=== PATIENT | female | born 1995 | race Caucasian/White ===

== ENCOUNTER 2019-05-04 18:06 | Emergency (ER) | payer OTHER ==
[2019-05-04] MEDS ORDERED: HYDROcod/ACETAM 5/325 MG TABLET PO STA (18:21)
--- NOTE | 2019-05-04 18:23 | ED Physician Documentation ---
PD HPI BACK PAIN - Stated complaint Stated Complaint: BACK/LT SHOULDER PX - Chief complaint Chief Complaint: Back Pain - History obtained from History obtained from: Patient (She works in an assisted living facility, she is a caregiver. The patient kind of slumped down on her shoulders and then she hit her back. She complains of left shoulder pain and back pain. This happened today this afternoon.) Review of Systems Constitutional: reports: Reviewed and negative Nose: reports: Reviewed and negative Throat: reports: Reviewed and negative PD PAST MEDICAL HISTORY - Present Medications Home Medications: Ambulatory Orders Medication Instructions Recorded Confirmed Cyclobenzaprine [Flexeril] 10 mg PO TID PRN #10 tablet 05/04/19 Meloxicam [Mobic] 7.5 mg PO BID PRN #20 tablet 05/04/19 - Allergies Allergies/Adverse Reactions: Allergies Allergy/AdvReac Type Severity Reaction Status Date / Time clarithromycin [From Biaxin] Allergy Anaphylaxis Verified 05/04/19 18:14 PD ED PE NORMAL - Vitals Vital signs reviewed: Yes - General General: Alert and oriented X 3, No acute distress - HEENT HEENT: PERRL, EOMI - Neck Neck: Supple, no meningeal sign, No bony TTP - Back Back: Other (Left shoulder is nontender with full range of motion, mild tenderness of the thoracic and lumbar spines.) - Extremities Extremities: Other (The patient has equal and normal Achilles and patellar reflexes bilaterally. Normal sensation in all areas of the legs. Patient denies saddle anesthesia. Normal strength in flexion-extension at the ankles, knees, and flexion of the hips.) - Neuro Neuro: Alert and oriented X 3, Normal speech Results - Vitals Vitals: Vital Signs - 24 hr 05/04/19 05/04/19 18:10 19:35 Temperature 36.2 C L Heart Rate 90 85 Respiratory 16 16 Rate Blood Pressure 117/80 109/79 O2 Saturation 99 97 Oxygen O2 Source Room air - Rads (name of study) TL spine XR Radiology: EMP read contemporaneously (neg) PD MEDICAL DECISION MAKING - ED course ED course: 24-year-old woman with a work-related injury, shoulder contusion, full range of motion and nontender so doubt bony injury. Also some tenderness of the mid thoracic spine pretty mild, neurovascularly normal and x-rays negative. Departure - Departure Disposition: 01 Home, Self Care Clinical Impression: Back contusion Qualifiers: Encounter type: initial encounter Laterality: unspecified laterality Qualified Code(s): S20.229A - Contusion of unspecified back wall of thorax, initial encounter Shoulder contusion Qualifiers: Encounter type: initial encounter Laterality: left Qualified Code(s): S40.012A - Contusion of left shoulder, initial encounter Condition: Good Record reviewed to determine appropriate education?: Yes Instructions: ED Low Back Pain Injury Prescriptions: Cyclobenzaprine [Flexeril] 10 mg PO TID PRN #10 tablet PRN Reason: Spasms Meloxicam [Mobic] 7.5 mg PO BID PRN #20 tablet PRN Reason: Pain Comments: Call your doctor to arrange a follow-up appointment, make the next available appointment. In the interim, return anytime if worse or if new symptoms develop. Discharge Date/Time: 05/04/19 19:36
--- NOTE | 2019-05-04 19:18 | XRAY Report ---
Reason: back injury Procedure Date: 05/04/2019 Accession Number: [id number] / [id number] Procedure: XR - ThoracoLumbar 2 View CPT Code: 73681 Final Report FULL RESULT: EXAM: LUMBOSACRAL SPINE RADIOGRAPHY EXAM DATE: 05/04/2019 06:48 PM. CLINICAL HISTORY: Back injury. COMPARISONS: None. TECHNIQUE: 2 views. FINDINGS: Alignment: Slight S-shaped curvature. Bones: Five [id number] lumbar vertebral bodies are present. No fractures or bone lesions. Disks: Normal. Disk heights are maintained. Soft Tissues: Normal. The visualized bowel gas pattern is normal. IMPRESSION: 1. Slight S-shaped curvature. 2. No compression deformities or spondylolisthesis RADIA
[2019-05-04 19:36] VITALS: BP 109/79
== END 2019-05-04 19:36 | disposition home or self-care (01) ==
LOC: ED 18:06
DX: S20.229A Contusion of unspecified back wall of thorax, initial encounter (principal); S40.012A Contusion of left shoulder, initial encounter; W50.0XXA Accidental hit or strike by another person, initial encounter; Y93.F9 Activity, other caregiving; Y92.091 Bathroom in other non-institutional residence as the place of occurrence of the external cause; Y99.0 Civilian activity done for income or pay
CPT/HCPCS: 72080; 99283; 99284; A9270

== ENCOUNTER 2019-09-25 14:52 | Outpatient (CLI) | payer BC ==
[2019-09-25 21:52] LABS: TRICHOMONAS VAGINALIS DNA NEGATIVE (NEGATIVE)
== END 2019-09-25 14:53 | disposition home or self-care (01) ==
LOC: LAB.WCP 14:52
PROVIDERS: ATTEND Nurse Practitioner
DX: Z11.3 Encounter for screening for infections with a predominantly sexual mode of transmission (principal)
CPT/HCPCS: 87491; 87591; 87661

== ENCOUNTER 2019-10-01 22:54 | Outpatient (CLI) | payer BC ==
[2019-10-01 23:30] LABS: THYROID STIMULATING HORMONE 5.54 uIU/mL (0.34-5.60)
[2019-10-01 23:31] LABS: FREE T3 3.47 pg/mL (2.5-3.9)
[2019-10-01 23:32] LABS: FREE T4 (FREE THYROXINE) 1.03 ng/dL (0.58-1.64)
== END 2019-10-01 22:55 | disposition home or self-care (01) ==
LOC: LAB 22:54
PROVIDERS: ATTEND Nurse Practitioner
DX: E03.9 Hypothyroidism, unspecified (principal); Z11.3 Encounter for screening for infections with a predominantly sexual mode of transmission
CPT/HCPCS: 36415; 84439; 84443; 84481

== ENCOUNTER 2020-05-31 22:36 | Emergency (ER) | payer OTHER, BC ==
--- NOTE | 2020-05-31 23:23 | ED Physician Documentation ---
PD HPI BACK PAIN - Stated complaint Stated Complaint: RT SIDE & BACK/KNEE PX - Chief complaint Chief Complaint: Trauma Ch/Bk - History obtained from History obtained from: Patient - History of Present Illness Timing - onset: Enter time (22:30), Today Timing - details: Abrupt onset Pain level now: 7 Location: Lower, Right Quality: Pain, Spasm Associated symptoms: No: Fever, Weakness, Numbness, Incontinent of urine, Unable to urinate, Incontinent of stool Improves with: Rest Worsened by: Movement Similar symptoms before: Has not had sx before Recently seen: Not recently seen - Additional information Additional information: patient is a [employer] and 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 This pain has steadily worsened since onset. She has h/o left back injury last year but the location and quality of tonight's pain is different. She denies h/o symptoms similar to tonight's symptoms. Review of Systems : denies: Incontinent, Now EGA Musculoskeletal: reports: Back pain. denies: Neck pain Neurologic: denies: Focal weakness, Numbness PD PAST MEDICAL HISTORY - Past Medical History Past Medical History: Yes Endocrine/Autoimmune: HyPOthyroidism - Past Surgical History Past Surgical History: Yes Ortho: Other - Present Medications Home Medications: Ambulatory Orders Medication Instructions Recorded Confirmed Bcp 05/31/20 Levothyroxine Sodium [Euthyrox] 125 mcg PO DAILY 05/31/20 05/31/20 Cyclobenzaprine [Flexeril] 10 mg PO TID PRN #20 tab 06/01/20 HYDROcod/ACETAM 5/325 [[place] 5/325] 1 - 2 ea PO Q6H PRN #15 06/01/20 Meloxicam [Mobic] 7.5 mg PO BID PRN #20 tab 06/01/20 - Allergies Allergies/Adverse Reactions: Allergies Allergy/AdvReac Type Severity Reaction Status Date / Time clarithromycin [From Biaxin] Allergy Anaphylaxis Verified 05/31/20 22:51 - Social History Does the pt smoke?: Yes Smoking Status: Current every day smoker Does the pt drink ETOH?: Yes Does the pt have substance abuse?: No - Immunizations Immunizations are current?: Yes - POLST Patient has POLST: No PD ED PE NORMAL - Vitals Vital signs reviewed: Yes - General General: Alert and oriented X 3, No acute distress (NAD at rest, appears to be uncomfortable with movement involving lower back), Well developed/nourished - Back Back: No CVA TTP, Other (TTP bilateral paralumbar) - Derm Derm: Normal color, Warm and dry - Neuro Neuro: No motor deficit (5/5 bilateral dorsi/plantarflexion), Other (2+/4 bilateral patellar DTR) Results - Vitals Vitals: Vital Signs - 24 hr 05/31/20 06/01/20 22:40 00:55 Temperature 36.5 C 36.3 C L Heart Rate 86 69 Respiratory 16 16 Rate Blood Pressure 138/84 H 127/77 O2 Saturation 100 100 Oxygen O2 Source Room air PD MEDICAL DECISION MAKING - ED course Complexity details: reviewed old records, reviewed results, re-evaluated patient, considered differential, d/w patient ED course: Right LBP with radiation down back of right leg to knee, sudden onset when heavy lifting (see HPI). Pain is worse with movement. No "red flags" ( no fever, numbness, weakness, bowel/bladder continence issues); no emergent testing indicated at this time. She will need time off from work and appropriate analgesia. She is given mobic in ED with prescriptions for mobic, flexeril, and vicodin. Departure - Departure Disposition: 01 Home, Self Care Clinical Impression: Lumbar sprain Qualifiers: Encounter type: initial encounter Qualified Code(s): S33.5XXA - Sprain of ligaments of lumbar spine, initial encounter Condition: Good Instructions: ED Sprain Strain Lumbar Follow-Up: [facility] [Provider Group] [facility] [Provider Group] Prescriptions: Cyclobenzaprine [Flexeril] 10 mg PO TID PRN #20 tab PRN Reason: Spasms Meloxicam [Mobic] 7.5 mg PO BID PRN #20 tab PRN Reason: Pain HYDROcod/ACETAM 5/325 [[place] 5/325] 1 - 2 ea PO Q6H PRN #15 PRN Reason: Pain Forms: Activity restrictions Discharge Date/Time: 06/01/20 00:58
[2020-06-01] MEDS ORDERED: CYCLOBENZAPRINE 10 MG Prepack 2 PO PRN (00:33)
[2020-06-01] MEDS ORDERED: HYDROcod/ACET 5/325 Prepack 4 PO STA (00:33)
[2020-06-01] MEDS ORDERED: MELOXICAM 7.5 MG TABLET PO STA (00:33)
[2020-06-01 01:02] VITALS: BP 127/77
== END 2020-06-01 00:58 | disposition home or self-care (01) ==
LOC: ED 22:36
DX: S33.5XXA Sprain of ligaments of lumbar spine, initial encounter (principal); X50.0XXA Overexertion from strenuous movement or load, initial encounter; Y93.F2 Activity, caregiving, lifting; Y92.239 Unspecified place in hospital as the place of occurrence of the external cause; Y99.0 Civilian activity done for income or pay; F17.200 Nicotine dependence, unspecified, uncomplicated
CPT/HCPCS: 99283; A9270

== ENCOUNTER 2020-06-05 17:13 | Outpatient (CLI) | payer BC ==
--- NOTE | 2020-06-05 17:52 | XRAY Report ---
PROCEDURE: Lumbar Spine 2 View INDICATIONS: STRAIN OF BACK MUSCLE TECHNIQUE: 3 views of the lumbar spine were acquired. COMPARISON: None. FINDINGS: Bones: 5 [id number] vertebrae are present. There is normal bony alignment. No vertebral body compression fractures. No suspicious bony lesions. Soft tissues: Overlying bowel gas pattern is normal. No suspicious soft tissue calcifications. IMPRESSION: Unremarkable radiographic examination of lumbar spine. Reviewed by: Osbaldo Pimentel MD on 06/05/2020 5:50 PM PST Approved by: Osbaldo Pimentel MD on 06/05/2020 5:50 PM PST Station ID: [id number]
== END 2020-06-05 17:14 | disposition home or self-care (01) ==
LOC: DI.N 17:13
PROVIDERS: ATTEND Nurse Practitioner
DX: S39.012A Strain of muscle, fascia and tendon of lower back, initial encounter (principal)

== ENCOUNTER 2022-05-06 15:46 | Outpatient (CLI) | payer BC ==
[2022-05-06 19:04] LABS: BASOPHILS % (AUTO) 1.2 %; EOSINOPHILS % (AUTO) 0.3 %; HCT - HEMATOCRIT 34.7 % (37.0-47.0); HGB - HEMOGLOBIN 11.2 g/dL (12.0-16.0); LYMPHOCYTES # (AUTO) 1.3 10^3/uL (1.5-3.5); LYMPHOCYTES % (AUTO) 39.4 %; MEAN CORPUSCULAR HEMOGLOBIN 30.2 pg (27.0-31.0); MEAN CORPUSCULAR HGB CONC 32.3 g/dL (32.0-36.0); MEAN CORPUSCULAR VOLUME 93.5 fL (81.0-99.0); MEAN PLATELET VOLUME 10.5 fL (7.9-10.8); MONOCYTES # (AUTO) 0.5 10^3/uL (0.0-1.0); MONOCYTES % (AUTO) 15.3 %; NEUTROPHILS # (AUTO) 1.5 10^3/uL (1.5-6.6); NEUTROPHILS % (AUTO) 43.5 %; PLT - PLATELET COUNT 230 10^3/uL (130-450); RED BLOOD COUNT 3.71 10^6/uL (4.20-5.40); RED CELL DISTRIBUTION WIDTH 13.7 % (12.0-15.0); WHITE BLOOD COUNT 3.4 x10^3/uL (4.8-10.8)
[2022-05-06 19:14] LABS: ALBUMIN 4.1 g/dL (3.2-5.5); ALBUMIN/GLOBULIN RATIO 0.6 (1.0-2.2); ALKALINE PHOSPHATASE 71 IU/L (42-121); ALT ALANINE AMINOTRANSFERASE 133 IU/L (10-60); AST ASPARTATE AMINOTRANSFERASE 86 IU/L (10-42); BILIRUBIN,TOTAL 0.7 mg/dL (0.2-1.0); BUN - BLOOD UREA NITROGEN 12 mg/dL (6-20); CALCIUM 8.8 mg/dL (8.5-10.3); CARBON DIOXIDE - CO2 23 mmol/L (21-32); CHLORIDE 103 mmol/L (101-111); CHOL/HDL RATIO 2.4 (<4.4); CHOLESTEROL 113 mg/dL; CREATININE 0.8 mg/dL (0.4-1.0); GFR - MDRD 87 (>89); GLUCOSE 86 mg/dL (70-100); HDL CHOLESTEROL 48 mg/dL; LDL CHOLESTEROL,CALCULATED 54 mg/dL; LDL/HDL RATIO 1.1 (<4.4); POTASSIUM 3.7 mmol/L (3.5-5.0); SODIUM 135 mmol/L (135-145); TOTAL PROTEIN 10.9 g/dL (6.7-8.2); TRIGLYCERIDES 55 mg/dL; VLDL CHOLESTEROL 11 mg/dL
[2022-05-06 19:31] LABS: FREE T3 2.27 pg/mL (2.5-3.9)
[2022-05-06 19:32] LABS: FREE T4 (FREE THYROXINE) 0.54 ng/dL (0.58-1.64)
[2022-05-06 21:52] LABS: THYROID STIMULATING HORMONE 146.9 uIU/mL (0.34-5.60)
[2022-05-06 23:56] LABS: CHLAMYDIA TRACHOMATIS DNA NEGATIVE (NEGATIVE); NEISSERIA GONORRHOEAE DNA NEGATIVE (NEGATIVE); TRICHOMONAS VAGINALIS DNA NEGATIVE (NEGATIVE)
[2022-05-08 05:10] LABS: HIV SCREEN 4TH GENERATION Non Reactive (Non Reactive)
[2022-05-11 04:09] LABS: RPR Non Reactive (Non Reactive)
== END 2022-05-06 15:47 | disposition home or self-care (01) ==
LOC: LAB.N 15:46
PROVIDERS: ATTEND Family Medicine
DX: E03.9 Hypothyroidism, unspecified (principal); Z11.3 Encounter for screening for infections with a predominantly sexual mode of transmission; J45.909 Unspecified asthma, uncomplicated
CPT/HCPCS: 36415; 80053; 80061; 83721; 84439; 84443; 84481; 85025; 86592; 87389; 87491; 87591; 87661

== ENCOUNTER 2022-05-12 20:33 | Outpatient (CLI) | payer BC ==
[2022-05-12 21:35] LABS: ALBUMIN 3.9 g/dL (3.2-5.5); ALBUMIN/GLOBULIN RATIO 0.6 (1.0-2.2); BILIRUBIN,TOTAL 0.6 mg/dL (0.2-1.0); CREATININE 0.7 mg/dL (0.4-1.0); POTASSIUM 3.6 mmol/L (3.5-5.0); TOTAL PROTEIN 10.5 g/dL (6.7-8.2)
[2022-05-14 05:11] LABS: HBsAG SCREEN Negative (Negative)
== END 2022-05-12 20:34 | disposition home or self-care (01) ==
LOC: LAB 20:33
PROVIDERS: ATTEND Family Medicine
DX: R94.5 Abnormal results of liver function studies (principal)
CPT/HCPCS: 36415; 80053; 82977; 86704; 86709; 87340

== ENCOUNTER 2022-05-31 06:46 | Outpatient (CLI) | payer BC ==
--- NOTE | 2022-05-31 08:29 | Ultrasound Report ---
PROCEDURE: Abdomen Complete INDICATIONS: ABN LIVER FUNCTION TESTS TECHNIQUE: Real-time scanning was performed of the abdominal and retroperitoneal organs, with image documentatio n. COMPARISON: None. FINDINGS: Liver: Increased liver echogenicity with focal region of fat stranding in the right hepatic lobe fauzia uring 2.1 cm. No solid mass identified. Gallbladder: Cholelithiasis without evidence of acute cholecystitis. Biliary ducts: Intrahepatic bile ducts are non-dilated. Extrahepatic bile duct caliber measures 4 m m. Normal is 6-7 mm or less in diameter, or 10 mm or less post-cholecystectomy. Pancreas: Visualized portions of the pancreas are sonographically normal. Spleen: Spleen is normal in size and homogeneous in echotexture. Kidneys: Kidneys are normal in size and echotexture. Right kidney measures 11.2 cm long; left kidne y measures 11.8 cm long. No hydronephrosis or nephrolithiasis. No solid masses. Aorta: Visualized aorta is normal in caliber at less than 3 cm. Iliacs: Proximal common iliac arteries are normal in caliber at less than 2.5 cm. IVC: Intrahepatic inferior vena cava is patent. Miscellaneous: No free abdominal fluid. IMPRESSION: 1. Increased liver echogenicity, likely hepatic steatosis. In the setting of elevated liver enzymes, NAFLD is a consideration. 2. Cholelithiasis without evidence of acute cholecystitis. Reviewed by: Obed Mcdaniel on 05/31/2022 8:28 AM [facility] Approved by: Obed Mcdaniel on 05/31/2022 8:28 AM PST Station ID: [id number]
== END 2022-05-31 06:47 | disposition home or self-care (01) ==
LOC: DI 06:46
PROVIDERS: ATTEND Family Medicine
DX: K80.20 Calculus of gallbladder without cholecystitis without obstruction (principal)

== ENCOUNTER 2022-07-19 19:01 | Outpatient (CLI) | payer BC | END 2022-07-19 19:02 | disposition left against medical advice (07) | LOC: EMS 19:01 | DX: R55 Syncope and collapse (principal) ==

== ENCOUNTER 2022-07-19 20:44 | Emergency (ER) | payer BC ==
--- NOTE | 2022-07-19 21:05 | ED Physician Documentation ---
History of Present Illness - Stated complaint Stated Complaint: IRREGULAR HR - Chief complaint Chief Complaint: Cardiac - History obtained from History obtained from: Patient - Additonal information Additional information: Previously healthy 27-year-old was in her usual state of health today making dinner. She started feel lightheaded and after a few minutes was sitting down and decided to go lay down. She stood up to go lay down and then collapsed with syncope. No seizure activity. She was out for about 60 seconds and now feels back to normal. EMS was summoned and noted her to have extrasystoles and she presents for evaluation. She denies pedal edema or calf pain. No history of extrasystoles but she does not know if she is ever even had an EKG before. She is on control and Synthroid. PD PAST MEDICAL HISTORY - Past Medical History Endocrine/Autoimmune: HyPOthyroidism - Past Surgical History Past Surgical History: Yes Ortho: Other - Present Medications Home Medications: Ambulatory Orders Medication Instructions Recorded Confirmed Bcp 05/31/20 Levothyroxine Sodium [Euthyrox] 125 mcg PO DAILY 05/31/20 05/31/20 Cyclobenzaprine [Flexeril] 10 mg PO TID PRN #20 tab 06/01/20 HYDROcod/ACETAM 5/325 [[place] 5/325] 1 - 2 ea PO Q6H PRN #15 06/01/20 Meloxicam [Mobic] 7.5 mg PO BID PRN #20 tab 06/01/20 - Allergies Allergies/Adverse Reactions: Allergies Allergy/AdvReac Type Severity Reaction Status Date / Time clarithromycin [From Biaxin] Allergy Anaphylaxis Verified 07/19/22 20:54 - Social History Does the pt smoke?: Yes Smoking Status: Current every day smoker Does the pt drink ETOH?: Yes Does the pt have substance abuse?: No - Immunizations Immunizations are current?: Yes - POLST Patient has POLST: No PD ED PE NORMAL - Vitals Vital signs reviewed: Yes - General General: Alert and oriented X 3, No acute distress - HEENT HEENT: PERRL, EOMI - Neck Neck: Supple, no meningeal sign, No bony TTP - Cardiac Cardiac: Other (Frequent extrasystoles without murmur) - Respiratory Respiratory: No respiratory distress, Clear bilaterally - Abdomen Abdomen: Non tender - Extremities Extremities: No edema, No calf tenderness / cord, Other (She was complaining of some pain in the left knee after the syncope. There was no tenderness or limited range of motion.) - Neuro Neuro: Alert and oriented X 3, Normal speech Eye Opening: Spontaneous Motor: Obeys Commands Verbal: Oriented GCS Score: 15 - Psych Psych: Normal mood, Normal affect Results - Vitals Vitals: Vital Signs - 24 hr 07/19/22 07/19/22 20:47 23:00 Temperature 36.6 C Heart Rate 95 71 Respiratory 18 20 Rate Blood Pressure 114/63 95/59 L O2 Saturation 100 98 Oxygen O2 Source Room air - EKG (time done) 2110 EKG releavant findings:: EKG personally interpreted by author of this note. Relevant findings are: Rate: Rate (enter#) (83) Rhythm: NSR (With fairly frequent PVCs) [place]: LAD Intervals: Other (Intraventricular conduction delay, QRS diameter 133 ms) QRS: Normal Ischemia: Normal ST segments - Labs Labs: Laboratory Tests 07/19/22 07/19/22 07/19/22 21:20 21:20 21:20 WBC 5.7 RBC 4.15 L Hgb 12.2 Hct 37.5 MCV 90.4 MCH 29.4 MCHC 32.5 RDW 12.4 Plt Count 235 MPV 9.9 Neut # (Auto) 3.5 Lymph # (Auto) 1.4 L [place] # (Auto) 0.7 Eos # (Auto) 0.0 Baso # (Auto) 0.0 Absolute Nucleated RBC 0.00 Nucleated RBC % 0.0 D-Dimer > 1050.0 H Sodium 135 Potassium 3.4 L Chloride 104 Carbon Dioxide 25 Anion Gap 6.0 BUN 14 Creatinine 0.6 Estimated GFR (MDRD) 121 Glucose 113 H Calcium 9.0 Magnesium 1.8 Total Bilirubin 0.3 AST 35 ALT 61 H Alkaline Phosphatase 48 Total Protein 9.3 H Albumin 3.7 Globulin 5.6 H Albumin/Globulin Ratio 0.7 L Urine Color Urine Clarity Urine pH Ur Specific [place] Urine Protein Urine Glucose (UA) Urine Ketones Urine Occult Blood Urine Nitrite Urine Bilirubin Urine Urobilinogen Ur Leukocyte Esterase Urine RBC Urine WBC Urine WBC Clumps Ur Squamous Epith Cells Urine Bacteria Urine Yeast Ur Microscopic Review Urine Culture Comments Urine HCG, Qual 07/19/22 21:55 WBC RBC Hgb Hct MCV MCH MCHC RDW Plt Count MPV Neut # (Auto) Lymph # (Auto) [place] # (Auto) Eos # (Auto) Baso # (Auto) Absolute Nucleated RBC Nucleated RBC % D-Dimer Sodium Potassium Chloride Carbon Dioxide Anion Gap BUN Creatinine Estimated GFR (MDRD) Glucose Calcium Magnesium Total Bilirubin AST ALT Alkaline Phosphatase Total Protein Albumin Globulin Albumin/Globulin Ratio Urine Color YELLOW Urine Clarity HAZY Urine pH 6.5 Ur Specific [place] 1.020 Urine Protein 100 H Urine Glucose (UA) NEGATIVE Urine Ketones NEGATIVE Urine Occult Blood NEGATIVE Urine Nitrite NEGATIVE Urine Bilirubin NEGATIVE Urine Urobilinogen 0.2 (NORMAL) Ur Leukocyte Esterase SMALL H Urine RBC 6-10 H Urine WBC 11-25 H Urine WBC Clumps PRESENT Ur Squamous Epith Cells FEW Squamous Urine Bacteria Few Urine Yeast PRESENT Ur Microscopic Review INDICATED Urine Culture Comments INDICATED Urine HCG, Qual NEGATIVE PD Medical Decision Making - ED course ED course: 27-year-old woman on hormonal control had a syncopal episode tonight, no serious injuries. She has frequent PVCs here, the acuity of this is unclear. There is no associated chest pain. Her work-up initially demonstrates the EKG as above, CBC which was grossly normal. CMP notable for borderline hypokalemia/hypomagnesemia repleted orally, mild elevation in liver enzymes which is chronic. Her D-dimer is quite elevated. Her urinalysis showing small leukocyte esterase and some white cells and yeast but without symptoms of UTI per se. Given the high D-dimer CT angiography of the chest was ordered. Care to overnight emergency physician pending CT read. Departure - Departure Disposition: 01 Home, Self Care Clinical Impression: Syncope, PVCs (premature ventricular contractions) Condition: Good Record reviewed to determine appropriate education?: Yes Instructions: ED Palpitations, ED Fainting Unkn Cause Comments: Follow-up with your primary care physician, consider prolonged cardiac monitoring such as Zio patch or Holter monitor and/or echocardiography and/or cardiology referral. Return for new or worsening symptoms. Forms: Activity restrictions Discharge Date/Time: 07/20/22 00:13
[2022-07-19 21:26] LABS: BASOPHILS % (AUTO) 0.2 %; HCT - HEMATOCRIT 37.5 % (37.0-47.0); HGB - HEMOGLOBIN 12.2 g/dL (12.0-16.0); LYMPHOCYTES # (AUTO) 1.4 10^3/uL (1.5-3.5); LYMPHOCYTES % (AUTO) 25.3 %; MEAN CORPUSCULAR HEMOGLOBIN 29.4 pg (27.0-31.0); MEAN CORPUSCULAR HGB CONC 32.5 g/dL (32.0-36.0); MEAN CORPUSCULAR VOLUME 90.4 fL (81.0-99.0); MEAN PLATELET VOLUME 9.9 fL (7.9-10.8); MONOCYTES # (AUTO) 0.7 10^3/uL (0.0-1.0); NEUTROPHILS # (AUTO) 3.5 10^3/uL (1.5-6.6); NEUTROPHILS % (AUTO) 61.3 %; PLT - PLATELET COUNT 235 10^3/uL (130-450); RED BLOOD COUNT 4.15 10^6/uL (4.20-5.40); RED CELL DISTRIBUTION WIDTH 12.4 % (12.0-15.0); WHITE BLOOD COUNT 5.7 x10^3/uL (4.8-10.8)
[2022-07-19 21:38] LABS: ALBUMIN 3.7 g/dL (3.2-5.5); ALBUMIN/GLOBULIN RATIO 0.7 (1.0-2.2); BILIRUBIN,TOTAL 0.3 mg/dL (0.2-1.0); CREATININE 0.6 mg/dL (0.4-1.0); MAGNESIUM 1.8 mg/dL (1.7-2.8); POTASSIUM 3.4 mmol/L (3.5-5.0); TOTAL PROTEIN 9.3 g/dL (6.7-8.2)
[2022-07-19] MEDS ORDERED: MAGNESIUM OXIDE 400 MG TABLET PO STA (21:39)
[2022-07-19] MEDS ORDERED: POTASSIUM CHLORIDE 20 MEQ TABLET PO STA (21:39)
[2022-07-19] MEDS ORDERED: iohexoL-300 100 ML VIAL ONE (22:01)
[2022-07-19 22:04] LABS: BILIRUBIN,URINE NEGATIVE (NEGATIVE); GLUCOSE, URINE (UA) NEGATIVE (NEGATIVE); KETONES,URINE (UA) NEGATIVE (NEGATIVE); LEUKOCYTE ESTERASE, URINE SMALL (NEGATIVE); NITRITE,URINE NEGATIVE (NEGATIVE); OCCULT BLOOD,URINE NEGATIVE (NEGATIVE); PH,URINE 6.5 PH (5.0-7.5); PROTEIN,URINE 100 mg/dL (NEGATIVE); UROBILINOGEN,URINE 0.2 (NORMAL) E.U./dL (NORMAL)
[2022-07-19 22:06] LABS: CLARITY,URINE HAZY (CLEAR); HCG UR QUAL NEGATIVE
[2022-07-19 22:11] LABS: BACTERIA,URINE Few /HPF (None Seen); SQUAMOUS EPITHELIAL CELL,UR FEW Squamous (<= Few); WBC CLUMPS,URINE PRESENT; YEAST,URINE PRESENT
[2022-07-19 23:10] VITALS: BP 95/59
--- NOTE | 2022-07-19 23:39 | CT Report ---
PROCEDURE: ANGIO CHEST W/WO INDICATIONS: syncope, high dimer CONTRAST: Omni 300 65ml TECHNIQUE: After the administration of intravenous contrast, 2 mm axial images were acquired from the pulmonary apices to the posterior costophrenic angles during the arterial phase. In addition, 1 mm lung kernel and 5 mm soft tissue kernel reconstructions were performed. 3-dimensional coronal oblique maximum int ensity projection (MIP) reformats, 8 mm axial MIP, and 5 mm coronal and sagittal MPR reformats were t hen performed through the thorax. For radiation dose reduction, the following was used: automated exp osure control, adjustment of mA and/or kV according to patient size. COMPARISON: None FINDINGS: Image quality: Good Lungs and pleura:No airspace disease or pleural effusions. Mediastinum, heart, and esophagus: No acute pulmonary embolism identified. Heart size is within [place] l limits. Nonspecific patulous appearance of the esophagus. No pathologic adenopathy by size criteria . Anterior mediastinal soft tissue likely thymic remnant tissue. Chest wall and thyroid: Unremarkable Upper abdomen: No significant abnormality on these limited arterial phase images. Bones: No acute or suspicious osseous finding. IMPRESSION: No acute pulmonary embolism. No dense airspace disease or pleural effusions identified. Reviewed by: Justin Avila MD on 07/19/2022 11:38 PM PDT Approved by: Justin Avila MD on 07/19/2022 11:38 PM PDT Station ID: [id number]
[2022-07-20] MEDS ORDERED: iohexoL-300 100 ML VIAL IVP ONE (00:06)
== END 2022-07-20 00:13 | disposition home or self-care (01) ==
LOC: ED 20:44
DX: R55 Syncope and collapse (principal); I49.3 Ventricular premature depolarization; R79.1 Abnormal coagulation profile; E87.6 Hypokalemia; E83.42 Hypomagnesemia; F17.200 Nicotine dependence, unspecified, uncomplicated
CPT/HCPCS: 36415; 71275; 80053; 81001; 81025; 83735; 85025; 85379; 87086; 93005; 99283; 99284; A9270; Q9967; 81003

== ENCOUNTER 2022-07-29 14:32 | Outpatient (CLI) | payer BC ==
[2022-07-29 14:42] LABS: BASOPHILS % (AUTO) 0.3 %; EOSINOPHILS % (AUTO) 0.9 %; HCT - HEMATOCRIT 38.6 % (37.0-47.0); HGB - HEMOGLOBIN 12.9 g/dL (12.0-16.0); LYMPHOCYTES % (AUTO) 43.8 %; MEAN CORPUSCULAR HEMOGLOBIN 29.4 pg (27.0-31.0); MEAN CORPUSCULAR HGB CONC 33.4 g/dL (32.0-36.0); MEAN CORPUSCULAR VOLUME 87.9 fL (81.0-99.0); MEAN PLATELET VOLUME 10.2 fL (7.9-10.8); MONOCYTES % (AUTO) 16.5 %; NEUTROPHILS % (AUTO) 38.2 %; PLT - PLATELET COUNT 236 10^3/uL (130-450); RED BLOOD COUNT 4.39 10^6/uL (4.20-5.40); RED CELL DISTRIBUTION WIDTH 12.3 % (12.0-15.0); WHITE BLOOD COUNT 3.5 x10^3/uL (4.8-10.8)
[2022-07-29 14:46] LABS: SLIDE REVIEW? Indicated
[2022-07-29 14:51] LABS: CALCIUM 9.1 mg/dL (8.5-10.3); CREATININE 0.5 mg/dL (0.4-1.0); MAGNESIUM 1.7 mg/dL (1.7-2.8); POTASSIUM 3.8 mmol/L (3.5-5.0)
[2022-07-29 15:12] LABS: THYROID STIMULATING HORMONE 0.12 uIU/mL (0.34-5.60)
[2022-07-29 15:14] LABS: FREE T3 3.91 pg/mL (2.5-3.9)
[2022-07-29 15:15] LABS: FREE T4 (FREE THYROXINE) 1.06 ng/dL (0.58-1.64)
[2022-07-29 15:32] LABS: ABNORMAL LYMPHS % (MANUAL) 0 %; BAND NEUTROPHILS % (MANUAL) 0 %
[2022-07-29 16:26] LABS: LYMPHOCYTES # (MANUAL) 1.4 10^3/uL (1.5-3.5); LYMPHOCYTES % (MANUAL) 38 %; MONOCYTES # (MANUAL) 0.5 10^3/uL (0.0-1.0); NEUTROPHILS # (MANUAL) 1.6 10^3/uL (1.5-6.6); REACTIVE LYMPHS % (MANUAL) 3 %
[2022-07-29 16:27] LABS: DIFFERENTIAL COMMENT MANUAL DIFFERENTIAL; PLATELET ESTIMATE, MANUAL NORMAL (130-450,000) (NORMAL); PLATELET MORPHOLOGY NORMAL APPEARANCE (NORMAL); RBC MORPHOLOGY (MULTIPLE) NORMAL APPEARANCE (NORMAL)
== END 2022-07-29 14:33 | disposition home or self-care (01) ==
LOC: LAB 14:32
PROVIDERS: ATTEND Family Medicine
DX: E03.9 Hypothyroidism, unspecified (principal); I49.9 Cardiac arrhythmia, unspecified; R55 Syncope and collapse; R00.0 Tachycardia, unspecified
CPT/HCPCS: 36415; 80048; 83735; 84439; 84443; 84481; 85025

== ENCOUNTER 2022-09-20 13:39 | Outpatient (CLI) | payer BC | END 2022-09-20 13:40 | disposition home or self-care (01) | LOC: MAC.INF 13:39 | PROVIDERS: ATTEND Family Medicine | DX: R55 Syncope and collapse (principal); R00.0 Tachycardia, unspecified | CPT/HCPCS: 93242 ==

== ENCOUNTER 2022-09-29 14:56 | Outpatient (CLI) | payer BC | END 2022-09-29 14:57 | disposition home or self-care (01) | LOC: DI 14:56 | PROVIDERS: ATTEND Family Medicine | DX: R55 Syncope and collapse (principal); R00.0 Tachycardia, unspecified; I49.3 Ventricular premature depolarization | CPT/HCPCS: 93306 ==

== ENCOUNTER 2022-10-01 07:13 | Outpatient (CLI) | payer BC ==
[2022-10-01 07:28] LABS: BASOPHILS % (AUTO) 0.9 %; EOSINOPHILS % (AUTO) 0.9 %; HCT - HEMATOCRIT 39.9 % (37.0-47.0); HGB - HEMOGLOBIN 13.2 g/dL (12.0-16.0); LYMPHOCYTES % (AUTO) 46.4 %; MEAN CORPUSCULAR HEMOGLOBIN 28.9 pg (27.0-31.0); MEAN CORPUSCULAR HGB CONC 33.1 g/dL (32.0-36.0); MEAN CORPUSCULAR VOLUME 87.3 fL (81.0-99.0); MEAN PLATELET VOLUME 10.1 fL (7.9-10.8); MONOCYTES % (AUTO) 18.6 %; NEUTROPHILS % (AUTO) 33.2 %; PLT - PLATELET COUNT 255 10^3/uL (130-450); RED BLOOD COUNT 4.57 10^6/uL (4.20-5.40); WHITE BLOOD COUNT 3.5 x10^3/uL (4.8-10.8)
[2022-10-01 07:32] LABS: ABNORMAL LYMPHS % (MANUAL) 0 %; BAND NEUTROPHILS % (MANUAL) 0 %
[2022-10-01 07:36] LABS: ALBUMIN 3.6 g/dL (3.2-5.5); ALBUMIN/GLOBULIN RATIO 0.6 (1.0-2.2); BILIRUBIN,TOTAL 0.5 mg/dL (0.2-1.0); CALCIUM 8.7 mg/dL (8.5-10.3); CREATININE 0.7 mg/dL (0.4-1.0); POTASSIUM 3.5 mmol/L (3.5-5.0); TOTAL PROTEIN 9.4 g/dL (6.7-8.2)
[2022-10-01 07:54] LABS: THYROID STIMULATING HORMONE 16.09 uIU/mL (0.34-5.60)
[2022-10-01 07:55] LABS: DIFFERENTIAL COMMENT MANUAL DIFFERENTIAL; LYMPHOCYTES # (MANUAL) 2.2 10^3/uL (1.5-3.5); LYMPHOCYTES % (MANUAL) 61 %; MONOCYTES # (MANUAL) 0.5 10^3/uL (0.0-1.0); NEUTROPHILS # (MANUAL) 0.8 10^3/uL (1.5-6.6); PLATELET ESTIMATE, MANUAL NORMAL (130-450,000) (NORMAL); PLATELET MORPHOLOGY NORMAL APPEARANCE (NORMAL); RBC MORPHOLOGY (MULTIPLE) NORMAL APPEARANCE (NORMAL); REACTIVE LYMPHS % (MANUAL) 2 %
[2022-10-01 07:56] LABS: FREE T3 2.83 pg/mL (2.5-3.9); FREE T4 (FREE THYROXINE) 0.75 ng/dL (0.58-1.64)
== END 2022-10-01 07:14 | disposition home or self-care (01) ==
LOC: LAB 07:13
PROVIDERS: ATTEND Family Medicine
DX: E03.9 Hypothyroidism, unspecified (principal); K76.0 Fatty (change of) liver, not elsewhere classified; R94.5 Abnormal results of liver function studies
CPT/HCPCS: 36415; 80053; 84439; 84443; 84481; 85025

== ENCOUNTER 2022-10-06 10:30 | Outpatient (CLI) | payer BC | END 2022-10-06 10:31 | disposition home or self-care (01) | LOC: MAC.INF 10:30 | PROVIDERS: ATTEND Family Medicine | DX: I49.3 Ventricular premature depolarization (principal); I49.1 Atrial premature depolarization; R00.8 Other abnormalities of heart beat | CPT/HCPCS: 93244 ==

== ENCOUNTER 2023-02-04 07:03 | Outpatient (CLI) | payer BC ==
[2023-02-04 13:21] LABS: THYROID STIMULATING HORMONE 1.19 uIU/mL (0.34-5.60)
== END 2023-02-04 07:04 | disposition home or self-care (01) ==
LOC: LAB.N 07:03
PROVIDERS: ATTEND Internal Medicine
DX: I49.9 Cardiac arrhythmia, unspecified (principal); R55 Syncope and collapse; I49.3 Ventricular premature depolarization
CPT/HCPCS: 36415; 84443

== ENCOUNTER 2023-02-11 09:06 | Outpatient (CLI) | payer BC ==
[2023-02-11 09:36] LABS: BILIRUBIN,URINE NEGATIVE (NEGATIVE); GLUCOSE, URINE (UA) NEGATIVE (NEGATIVE); KETONES,URINE (UA) NEGATIVE (NEGATIVE); LEUKOCYTE ESTERASE, URINE NEGATIVE (NEGATIVE); NITRITE,URINE NEGATIVE (NEGATIVE); OCCULT BLOOD,URINE TRACE-INTA (NEGATIVE); PH,URINE 6.5 PH (5.0-7.5); PROTEIN,URINE NEGATIVE (NEGATIVE); UROBILINOGEN,URINE 0.2 (NORMAL) E.U./dL (NORMAL)
[2023-02-11 09:39] LABS: CLARITY,URINE CLEAR (CLEAR)
== END 2023-02-11 09:07 | disposition home or self-care (01) ==
LOC: LAB.WC 09:06
PROVIDERS: ATTEND Nurse Practitioner
DX: R31.9 Hematuria, unspecified (principal)
CPT/HCPCS: 81001; 81003; 87086

== ENCOUNTER 2023-02-28 07:03 | Outpatient (CLI) | payer BC ==
[2023-02-28 12:42] LABS: BASOPHILS % (AUTO) 0.6 %; EOSINOPHILS % (AUTO) 0.3 %; HCT - HEMATOCRIT 38.7 % (37.0-47.0); HGB - HEMOGLOBIN 12.5 g/dL (12.0-16.0); LYMPHOCYTES # (AUTO) 1.5 10^3/uL (1.5-3.5); LYMPHOCYTES % (AUTO) 41.9 %; MEAN CORPUSCULAR HEMOGLOBIN 28.9 pg (27.0-31.0); MEAN CORPUSCULAR HGB CONC 32.3 g/dL (32.0-36.0); MEAN CORPUSCULAR VOLUME 89.4 fL (81.0-99.0); MEAN PLATELET VOLUME 10.6 fL (7.9-10.8); MONOCYTES # (AUTO) 0.5 10^3/uL (0.0-1.0); MONOCYTES % (AUTO) 14.9 %; NEUTROPHILS # (AUTO) 1.5 10^3/uL (1.5-6.6); NEUTROPHILS % (AUTO) 42.3 %; PLT - PLATELET COUNT 276 10^3/uL (130-450); RED BLOOD COUNT 4.33 10^6/uL (4.20-5.40); RED CELL DISTRIBUTION WIDTH 13.4 % (12.0-15.0); WHITE BLOOD COUNT 3.6 x10^3/uL (4.8-10.8)
[2023-02-28 13:03] LABS: ALBUMIN 3.8 g/dL (3.2-5.5); ALBUMIN/GLOBULIN RATIO 0.8 (1.0-2.2); BILIRUBIN,TOTAL 0.3 mg/dL (0.2-1.0); CALCIUM 9.4 mg/dL (8.5-10.3); CREATININE 0.5 mg/dL (0.6-1.3); POTASSIUM 3.7 mmol/L (3.5-4.5); TOTAL PROTEIN 8.6 g/dL (6.4-8.9)
[2023-02-28 14:04] LABS: THYROID STIMULATING HORMONE 0.1 uIU/mL (0.34-5.60)
[2023-03-01 05:11] LABS: RPR Non Reactive (Non Reactive)
[2023-03-01 07:10] LABS: HSV 1 IGG TYPE SPEC <0.91 index (0.00-0.90)
== END 2023-02-28 07:04 | disposition home or self-care (01) ==
LOC: LAB.N 07:03
PROVIDERS: ATTEND Nurse Practitioner
DX: N76.5 Ulceration of vagina (principal); E87.6 Hypokalemia; R94.5 Abnormal results of liver function studies; G43.909 Migraine, unspecified, not intractable, without status migrainosus; Z30.9 Encounter for contraceptive management, unspecified; J45.909 Unspecified asthma, uncomplicated; E03.9 Hypothyroidism, unspecified
CPT/HCPCS: 36415; 80053; 84439; 84443; 84481; 85025; 86592; 86695; 86696

== ENCOUNTER 2023-06-17 08:00 | Outpatient (CLI) | payer BC | END 2023-06-17 23:59 | disposition home or self-care (01) | LOC: LAB.N 08:00 | PROVIDERS: ATTEND Physician Assistant Medical | DX: J03.90 Acute tonsillitis, unspecified (principal) | CPT/HCPCS: 87070 ==

== ENCOUNTER 2023-06-25 08:00 | Outpatient (CLI) | payer BC ==
[2023-06-25 09:08] LABS: THYROID STIMULATING HORMONE 0.02 uIU/mL (0.34-5.60)
== END 2023-06-25 23:59 | disposition home or self-care (01) ==
LOC: LAB 08:00
PROVIDERS: ATTEND Family Medicine
DX: E03.9 Hypothyroidism, unspecified (principal)
CPT/HCPCS: 36415; 84439; 84443; 84481